=== PATIENT | male | born 1960 | race Caucasian/White ===

== ENCOUNTER 2024-10-12 16:41 | Emergency (ER) | payer MEDICARE, OTHER, SELFPAY ==
[2024-10-12 16:57] VITALS: BP 147/94
--- NOTE | 2024-10-12 20:38 | ED.GENMED ---
History of Present Illness
General
Chief Complaint: Skin Surface Trauma
Source: patient
Exam Limitations: none
Time Seen by Provider: 10/12/24 20:14
History of Present Illness
History of Present Illness:
64yoM with a history of bipolar disorder, schizophrenia, hyperlipidemia, and COPD presenting via EMS for evaluation of a right cheek wound. Patient is a resident at [facility]. He was picking a scab earlier today and staff at the nursing facility
were unable to stop the bleeding so EMS was called. He takes aspirin and Plavix. No other concerns reported.
Phy Exam
General Physical Exam
General Presentation: well appearing and no apparent distress
General age: appears stated age
General Skin: warm and dry
General Habitus: normal
General Mental: alert
ENT Exam
ENT Exam: normocephalic
Pulmonary Exam
Pulmonary Exam: no respiratory distress
Neurological Exam
Neurological Exam: alert
Skin Exam
Skin Exam: normal color, warm/dry and other (Small wound noted to R jaw region that has a small amount of venous oozing after saline irrigation. )
Psychiatric Exam
Psychiatric Exam: normal mood/affect
Course
Vital Signs
Initial and Last Documented VS:
Initial Vital Signs
Temp Pulse Resp BP Pulse Ox
98.3 F 77 20 147/94 97
10/12/24 16:57 10/12/24 16:57 10/12/24 16:57 10/12/24 16:57 10/12/24 16:57
Last Documented Vital Signs
Temp Pulse Resp BP Pulse Ox
98.3 F 75 16 145/98 100
10/12/24 16:57 10/12/24 22:02 10/12/24 22:02 10/12/24 22:02 10/12/24 22:02
MDM/Problems Addressed
Differential Diagnosis Includes:
64yoM here with a wound to his R cheek/jaw region. Picked a scab earlier today and [facility]'t [facility]. There is a small wound noted on exam with some venous oozing.
Lidocaine with epinephrine injected and silver nitrate applied. Very small amount of residual bleeding noted and surgicel placed. No further bleeding noted after surgicel placement. Patient discharged back to his nursing facility in stable
condition.
*Critical Care Note
Total Time (30-74mins, 75-104mins- exclusive of procedures): Not Applicable
ED Attending Note
-
Portions of this chart may have been created with voice recognition software.� Occasional wrong word or��sound alike� substitutions may have occurred due to the inherent limitations of voice recognition software.
Discharge Plan
Departure
Patient Disposition: Home (Routine Discharge)
Date of Disposition: 10/12/24
Time of Disposition: 21:11
Patient with high blood pressure during this ER visit?: Yes
Discharge Problem:
Wound of right cheek
Instructions: Wound Care (DC)
Referrals:
Fran Staples MD [Family Provider] -
Activity Restrictions/Additional Instructions:
Keep Surgicel in place for at least 72 hours.
Return to the ER with any issues or bleeding that is not controlled with direct pressure.
Interventions
Interventions:
*Risk Screen - Suicide Last Done: 10/12/24 22:03
*General Assessment Last Done: 10/12/24 16:57
*Neglect/Abuse Screening Last Done: 10/12/24 16:57
ED- Fall Risk Assessment Last Done: 10/12/24 20:53
*ED COVID-19 Vaccine History Last Done: 10/12/24 20:53
*Nursing Disposition Last Done: 10/12/24 23:30
ED-Skin Assessment Last Done: 10/12/24 20:53
Discharge Date and Time
Discharge Date/Time: 10/12/24 23:31
Print Language: ITALIAN
[2024-10-12 21:32] VITALS: BMI 29.5
[2024-10-12 22:02] VITALS: BP 145/98
== END 2024-10-12 23:31 | disposition home or self-care (01) ==
LOC: EMR 16:41
PROVIDERS: EMERGENCY PHYSICIAN Emergency Medicine; FAMILY PHYSICIAN Internal Medicine
DX: S01.401A Unspecified open wound of right cheek and temporomandibular area, initial encounter (principal); X58.XXXA Exposure to other specified factors, initial encounter; F20.9 Schizophrenia, unspecified; F31.9 Bipolar disorder, unspecified; E78.5 Hyperlipidemia, unspecified; J44.9 Chronic obstructive pulmonary disease, unspecified; Z79.82 Long term (current) use of aspirin
CPT/HCPCS: 99282